=== PATIENT | male | born 1955 | race Caucasian/White ===

== ENCOUNTER 2017-10-14 13:00 | Day surgery (SDC) | payer MEDICARE ==
[~2017-10-14] VITALS: Ht 175.3 cm; Wt 90.7 kg
[~2017-10-14 13:00] MED LIST: ASPIRIN LOW DOS81 M2 PO; ATORVASTATIN CA80 MG PO; BRIMONIDINE TAR0.2 % OU; CLOPIDOGREL75 MG PO; COREG3.125 MG PO; LIPITOR20 M1 PO; LISINOPRIL10 MG PO; MAGNESIUM30 MG PO; MECLIZINE25 MG PO; MUCUS RELIEF400 MG PO; OMEPRAZOLE20 M2 PO; SERTRALINE50 MG PO; TAMSULOSIN0.4 MG PO; VENTOLIN HFA IN; VITAMIN D5000 UNIT PO; XALATAN0.005 % OU
[2017-10-14 17:48] VITALS: BP 129/75
== END 2017-10-14 18:05 | disposition home or self-care (01) ==
LOC: ENDO 13:00
PROVIDERS: ATTEND Internal Medicine Gastroenterology
PROC: 0DBP8ZX Excision of Rectum, Via Natural or Artificial Opening Endoscopic, Diagnostic (ICD-10-PCS; principal; 2017-10-14)
PROC: 0DBN8ZX Excision of Sigmoid Colon, Via Natural or Artificial Opening Endoscopic, Diagnostic (ICD-10-PCS; 2017-10-14)
DX: K57.30 Diverticulosis of large intestine without perforation or abscess without bleeding (principal); K64.4 Residual hemorrhoidal skin tags; K64.8 Other hemorrhoids; D12.5 Benign neoplasm of sigmoid colon; D12.8 Benign neoplasm of rectum; K21.9 Gastro-esophageal reflux disease without esophagitis; K44.9 Diaphragmatic hernia without obstruction or gangrene; J44.9 Chronic obstructive pulmonary disease, unspecified; Z87.11 Personal history of peptic ulcer disease; Z86.010 Personal history of colon polyps; Z79.899 Other long term (current) drug therapy

== ENCOUNTER 2019-01-12 07:38 | Day surgery (SDC) | payer MEDICARE ==
[~2019-01-12] VITALS: Ht 175.3 cm; Wt 95.3 kg
[~2019-01-12 07:38] MED LIST changes: +BENADRYL25 M1 PO; +LISINOPRIL20 MG PO; +MELATONIN5 MG PO; +VENTOLIN HFA; -VENTOLIN HFA IN
[2019-01-12 10:39] VITALS: BP 128/79
== END 2019-01-12 10:45 | disposition home or self-care (01) ==
LOC: ENDO 07:38 → ORM 13:45
PROVIDERS: ATTEND Internal Medicine Gastroenterology
PROC: 0D758ZZ Dilation of Esophagus, Via Natural or Artificial Opening Endoscopic (ICD-10-PCS; principal; 2019-01-12)
PROC: 0DB58ZX Excision of Esophagus, Via Natural or Artificial Opening Endoscopic, Diagnostic (ICD-10-PCS; 2019-01-12)
PROC: 0DB78ZX Excision of Stomach, Pylorus, Via Natural or Artificial Opening Endoscopic, Diagnostic (ICD-10-PCS; 2019-01-12)
DX: K22.8 Other specified diseases of esophagus (principal); K29.50 Unspecified chronic gastritis without bleeding; K44.9 Diaphragmatic hernia without obstruction or gangrene; K29.80 Duodenitis without bleeding; K31.9 Disease of stomach and duodenum, unspecified; K21.9 Gastro-esophageal reflux disease without esophagitis; J44.9 Chronic obstructive pulmonary disease, unspecified

== ENCOUNTER 2019-03-01 11:05 | Observation (INO) | payer MEDICARE ==
[~2019-03-01] VITALS: Ht 175.3 cm; Wt 91.0 kg
--- NOTE | 2019-03-01 11:18 | NUR ---
PT TO ROOM VIA WC
[2019-03-01 11:49] LABS: HEMATOCRIT 48.2 % (39.0-50.0); HEMOGLOBIN 16.3 g/dl (14.0-18.0); IMMATURE GRANULOCYTES 0.2 % (0.0-5.0); MEAN CELL VOLUME 85.2 fL CALC (80.0-100.0); MEAN CORPUSCULAR HGB 28.8 pG CALC (26.0-32.0); MEAN CORPUSCULAR HGB CONC 33.8 g/L CALC (32.0-36.0); NEUT# 7.62 thou/uL (1.82-7.42); RED BLOOD COUNT 5.66 mill/uL (4.70-6.10); RED CELL DISTRI WIDTH 12.8 % (11.5-15.5)
--- NOTE | 2019-03-01 12:04 | NUR ---
PT PRESENTS WITH ABD PAIN OF 10/10. ABD APPEARS DISTENDED. BOWEL SOUNDS HYPERACTIVE AND AUDIBLE WITHOUT STETH. PT HAS INTERM VOMITING BUT CONFIRMS CLEAR EMISIS AND DIARRHEA. 2 LOOSE STOOLS A DAY. SYMPTOMS STARTED 10 DAYS AGO. URINE OUTPUT IS LITTLE WITH 0.021 ML OF URINE DETERMINED BY BLADDER SCANNER. WILL CONTINUE TO MONITOR.
[2019-03-01 12:09] LABS: ALBUMIN 4.5 g/dL (3.2-5.0); ALKALINE PHOSPHATASE 93 u/l (38-126); BILIRUBIN, TOTAL 1.5 mg/dL (0.0-1.4); BUN 19 mg/dL (8-23); BUN/CREATININE RATIO 19 (12-20 (CALC)); CARBON DIOXIDE 25 mmol/l (22-30); CHLORIDE 99 mmol/l (95-108); GFR > 60 ML/MIN (>=60 (CALC)); GFR FOR AFR.AMER. > 60 ML/MIN (>=60 (CALC)); LIPASE 88 u/l (23-300); SGOT/AST 22 u/l (19-48); TOTAL PROTEIN 8.3 g/dL (6.3-8.2)
[2019-03-01 12:21] LABS: ANION GAP 16 (6-22 (CALC)); SODIUM 135 mmol/l (137-146)
[2019-03-01 12:22] LABS: POTASSIUM 5.3 mmol/l (3.5-5.1)
--- NOTE | 2019-03-01 12:57 | NUR ---
PT MADE AWARE AGAIN FOR URINE SAMPLE, PT STATES HE CANNOT PROVIDE AT THIS TIME.
--- NOTE | 2019-03-01 13:30 | NUR ---
PT PROVIDED URINE AND DENIES ANY NEEDS AT THIS TIME
[2019-03-01 14:15] LABS: URINE BLOOD DIPSTICK NEGATIVE (NEGATIVE); URINE COLOR YELLOW; URINE GLUCOSE - DIPSTICK NEGATIVE (NEGATIVE); URINE KETONE 15 mg/dL (NEGATIVE); URINE LEUK ESTERASE NEGATIVE (NEGATIVE); URINE NITRITE - DIPSTICK NEGATIVE (Negative); URINE PH 5.5 (4.5-8.0); URINE PROTEIN - DIPSTICK TRACE mg/dL (NEG-TRACE); URINE SPECIFIC GRAVITY >=1.030; URINE UROBILINOGEN - DIPSTICK 0.2 E.U./dL (0.2)
[2019-03-01 14:20] LABS: BARBITURATES NEGATIVE (NEGATIVE); COCAINE NEGATIVE (NEGATIVE); METHADONE NEGATIVE (NEGATIVE); OXCYCODONE NEGATIVE (NEGATIVE); TETRAHYDROCANNABIONOL POSITIVE (NEGATIVE); TRICYLIC ANTIDEPRESSANTS NEGATIVE (NEGATIVE)
[2019-03-01 14:22] LABS: URINE BILIRUBIN - DIPSTICK SMALL (NEGATIVE)
--- NOTE | 2019-03-01 14:28 | NUR ---
MD IN ROOM DISCUSSING PLAN OF CARE AND OPTIONS FOR ADMISSION
--- NOTE | 2019-03-01 15:50 | NUR ---
PT SITTING UP IN BED TALKING TO DENIES ANY NEEDS
--- NOTE | 2019-03-01 16:50 | NUR ---
PT ASKED ABOUT REDNESS ON FACE, MD NOTIFIED NOTE: REDNESS WAS SEEN UPON ARRIVAL BUT AGGRIVATED WITH VOMITING
--- NOTE | 2019-03-01 17:19 | NUR ---
PT RESTING WITH EYES CLOSED
--- NOTE | 2019-03-01 17:26 | NUR ---
FUTURE NOTES AND VITALS DONE ON STATUS BOARD
[2019-03-01 18:00] VITALS: BP 137/64
--- NOTE | 2019-03-01 18:00 | NUR ---
PT RESTING WITH EYES CLOSED
--- NOTE | 2019-03-01 18:00 | NUR ---
PT RESTING ON STRETCHER WITH EYES CLOSED
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
--- NOTE | 2019-03-01 19:46 | NUR ---
CALLED MED SURG BUT NURSE BUSY. NURSE IS SAID TO CALL BACK
--- NOTE | 2019-03-01 20:04 | NUR ---
PT ONLY ATE ABOUT 10% OF FOOD FROM TRAY. PT STATED HE COULD NOT EAT MORE. PT DENIES ANY OTHER NEEDS
--- NOTE | 2019-03-01 20:08 | NUR ---
CALLED MED [facility]G FOR REPORT WAS PUT ON HOLD FOR 15 MINS. CALLED AGAIN...NO RESPONSE
--- NOTE | 2019-03-01 20:09 | NUR ---
SOMEONE ANSWERED PHONE AND STATED THAT THE NURSE SHERLYN WILL CALL BACK
--- NOTE | 2019-03-01 20:13 | NUR ---
REPORT JASPER TO SHERLYN
--- NOTE | 2019-03-01 20:33 | NUR ---
PT TRANSFERED TO [facility] STABLE AND IN NO DISTRESS CARE ASSUMED TO SHERLYN
[2019-03-01 21:20] VITALS: BP 96/55
--- NOTE | 2019-03-01 22:50 | NUR ---
PT RECEIVED PRN DOSE OF TYLENOL FOR PAIN IN THE ABDOMEN, TOLERATED WELL. WILL CONT TO MONITOR.
[2019-03-02 04:05] VITALS: BP 98/60
--- NOTE | 2019-03-02 05:54 | NUR ---
PT HAS HAD NO EPISODES OF VOMITING AND NO C/O NAUSEA DURING SHIFT. ABD IS SOFT AND DISTENDED, NO C/O ON PALPATION. BOWEL SOUNDS ACTIVE. PT WT IS 91.4KG. PT STATES PAIN IS 0/10 ON PAIN SCALE. PT RESTING IN BED WITH EYES CLOSED. 20G IN RIGHT AC PATENT AND INTACT.
--- NOTE | 2019-03-02 07:15 | NUR ---
REPORT RECEIVED FROM DEBI PLATA;PT APPEARS TO BE SLEEPING IN SEMI FOWLERS POSITION;NO S/S OF DISTRESS NOTED;RESPIRATIONS EVEN AND UNLABORED ON RA;ALL SAFETY PRECAUTIONS IN PLACE WITH BED IN THE LOWEST POSITION AND CALL LIGHT IN REACH;WILL CONTINUE TO MONITOR
[2019-03-02 08:01] LABS: ANION GAP 15 (6-22 (CALC)); BUN 17 mg/dL (8-23); BUN/CREATININE RATIO 21 (12-20 (CALC)); CARBON DIOXIDE 21 mmol/l (22-30); CHLORIDE 104 mmol/l (95-108); CREATININE 0.8 mg/dL (0.7-1.3); GFR > 60 ML/MIN (>=60 (CALC)); GFR FOR AFR.AMER. > 60 ML/MIN (>=60 (CALC)); POTASSIUM 4.5 mmol/l (3.5-5.1); SODIUM 135 mmol/l (137-146)
--- NOTE | 2019-03-02 08:40 | NUR ---
PT RESTING IN SEMI FOWLERS POSITION,A&O X4;VS OBTAINED AND ASSESSMENT COMPLETED;PT DENIES ANY CURRENT PAIN OR DISCOMFORTS,PAIN SCALE AND REPORTING EDUCATED;RESPIRATIONS EVEN AND UNLABORED ON RA;ABDOMEN DISTENDED/SOFT ON PALPATION AND ACTIVE IN ALL 4 QUADRANTS;WEAK PEDAL PULSES;SKIN INTACT;#20G TO RAC FLUSHED AND PATENT,NS STARTED @ 100ML/HR,SITE APPEARS HEALTHY;PT DENIES ANY ADDITIONAL NEEDS AT THIS TIME AND IS ENCOURAGED TO CALL FOR ASSISTANCE IF NEEDED;FALL PRECAUTIONS IN PLACE WITH CALL LIGHT IN REACH;WILL CONTINUE TO MONITOR
[2019-03-02 08:41] VITALS: BP 100/67
[2019-03-02] MEDS ORDERED: LISINOPRIL40 MG PO (11:53)
[2019-03-02] MEDS ORDERED: LIPITOR40 M1 PO (11:55)
--- NOTE | 2019-03-02 12:20 | NUR ---
PT RESTING IN SEMI FOWLERS POSITION WITH SPOUSE AT BEDSIDE;RESPIRATIONS EVEN AND UNLABORED ON RA;PT DENIES ANY CURRENT PAIN OR NEEDS;IV FLUIDS INFUSING WITH EASE PER ORDER;NPO DIET REINFORCED AND PT VERBALIZES UNDERSTANDING;PT ENCOURAGED TO CALL FOR ASSISTANCE IF NEEDED;CALL LIGHT IN REACH;WILL CONTINUE TO MONITOR
[2019-03-02] MEDS ORDERED: LIPITOR80 M1 PO (12:33)
--- NOTE | 2019-03-02 12:36 | NUR ---
PT TRANSPORTED TO [facility] IN STABLE CONDITION VIA WHEELCHAIR ACCOMPANIED BY VOLUNTEER.
--- NOTE | 2019-03-02 13:03 | NUR ---
PT TRANSPORTED BACK TO MED/SURG ROOM 267 IN STABLE CONDITION VIA WHEELCHAIR ACCOMPANIED BY VOLUNTEER.
--- NOTE | 2019-03-02 13:11 | NUR ---
AT BEDSIDE DISCUSSING POC WITH PT AND SPOUSE.
--- NOTE | 2019-03-02 13:43 | NUR ---
AT BEDSIDE DISCUSSING POC WITH PT AND SPOUSE.
[2019-03-02 15:07] VITALS: BP 121/76
--- NOTE | 2019-03-02 15:30 | NUR ---
PT RESTING IN SEMI FOWLERS POSITION WITH SPOUSE AT BEDSIDE;RESPIRATIONS EVEN AND UNLABORED ON RA;PT DENIES ANY CURRENT PAIN OR NEEDS;IV FLUIDS INFUSING WITH EASE;ASSESSMENT REMAINS UNCHANGED;PT ENCOURAGED TO CALL FOR ASSISTANCE IF NEEDED;CALL LIGHT IN REACH;WILL CONTINUE TO MONITOR
[2019-03-02 20:00] VITALS: BP 118/68
--- NOTE | 2019-03-02 20:05 | NUR ---
ASSESSMENT COMPLETED. IV SITE PATENT AND INFUSING ORDERED IVF WELL. UPDATED ON POC AND INSTRUCTED ON NEED FOR STOOL SAMPLE. DENIES NAUSEA/VOMITING. ENCOURAGED TO CALL FOR ANY NEEDS. CALL LIGHT IS IN REACH.
--- NOTE | 2019-03-03 00:10 | NUR ---
RESTING IN BED ON LEFT SIDE WITH EYES CLOSED; RESP. EVEN AND UNLABORED.
--- NOTE | 2019-03-03 03:45 | NUR ---
RESTING IN BED WITH EYES CLOSED; RESP. EVEN AND UNLABORED. CALL LIGHT IS IN REACH.
[2019-03-03 04:00] VITALS: BP 114/69
[2019-03-03 05:12] LABS: IMMATURE GRANULOCYTES 0.2 % (0.0-5.0); MEAN CELL VOLUME 86.1 fL CALC (80.0-100.0); MEAN CORPUSCULAR HGB 28.8 pG CALC (26.0-32.0); MEAN CORPUSCULAR HGB CONC 33.4 g/L CALC (32.0-36.0); NEUT# 3.23 thou/uL (1.82-7.42); RED BLOOD COUNT 4.62 mill/uL (4.70-6.10); RED CELL DISTRI WIDTH 12.5 % (11.5-15.5)
[2019-03-03 05:24] LABS: HEMATOCRIT 39.8 % (39.0-50.0); HEMOGLOBIN 13.3 g/dl (14.0-18.0)
[2019-03-03 05:31] LABS: ANION GAP 11 (6-22 (CALC)); BUN 13 mg/dL (8-23); BUN/CREATININE RATIO 18 (12-20 (CALC)); CARBON DIOXIDE 22 mmol/l (22-30); CHLORIDE 106 mmol/l (95-108); CREATININE 0.7 mg/dL (0.7-1.3); GFR > 60 ML/MIN (>=60 (CALC)); GFR FOR AFR.AMER. > 60 ML/MIN (>=60 (CALC)); MAGNESIUM 1.8 mg/dL (1.6-2.3); POTASSIUM 4.3 mmol/l (3.5-5.1); SODIUM 135 mmol/l (137-146)
--- NOTE | 2019-03-03 06:00 | NUR ---
RESTING IN BED WITH NO DISTRESS NOTED; DENIES NEEDS/PAIN. CALL LIGHT IS IN REACH.
[2019-03-03 07:18] VITALS: BP 117/72
--- NOTE | 2019-03-03 07:18 | NUR ---
PT RESTING IN BED, NO SIGNS OF DISTRESS NOTED, RESP EVEN AND UNLABORED. PT ALERT AND ORIENTED X3, DISCUSSED POC, PT DENIES ANY NEEDS OR PAIN AT THIS TIME. ASSESSMENT COMPLETED, CALL LIGHT IN REACH,CONTINUE TO MONITOR.
--- NOTE | 2019-03-03 08:18 | NUR ---
ASSISTED PT TO BATHROOM IN ATTEMPTS TO HAVE A BM, INFORMED PT THAT STOOL SAMPLE NEEDED. HAT IN TOILET. INSTRUCTED TO PULL CORD WHEN DONE.
[2019-03-03 08:57] VITALS: BP 117/72
--- NOTE | 2019-03-03 12:00 | NUR ---
PT RESTING IN BED, DISCUSSED ADVANCED DIET, PT VOICES NO NEEDS OR COMPLAINTS AT THIS TIME. CALL LIGHT IN REACH,CONTINUE TO MONITOR.
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
--- NOTE | 2019-03-03 13:18 | NUR ---
Discharge instructions given. Patient verbalizes understanding of same. Discharged in stable condition via Wheelchair to Home with spouse. All belongings sent with pt.
== END 2019-03-03 13:16 | disposition home or self-care (01) ==
LOC: ED 11:05 → ED-I 14:27 → ED 14:40 → MS2 14:41 → ED-I 14:41 → MS2 18:47
PROVIDERS: Nurse Practitioner Family; ADMIT Internal Medicine; ATTEND Internal Medicine
DX: A08.4 Viral intestinal infection, unspecified (principal); E86.0 Dehydration; I95.9 Hypotension, unspecified; E87.5 Hyperkalemia; R74.0 Nonspecific elevation of levels of transaminase and lactic acid dehydrogenase [LDH]; I10 Essential (primary) hypertension; E78.5 Hyperlipidemia, unspecified; J43.9 Emphysema, unspecified; I25.10 Atherosclerotic heart disease of native coronary artery without angina pectoris; K21.9 Gastro-esophageal reflux disease without esophagitis; K44.9 Diaphragmatic hernia without obstruction or gangrene; N40.0 Benign prostatic hyperplasia without lower urinary tract symptoms; F17.200 Nicotine dependence, unspecified, uncomplicated; Z95.5 Presence of coronary angioplasty implant and graft; Z79.02 Long term (current) use of antithrombotics/antiplatelets; Z95.828 Presence of other vascular implants and grafts
CPT/HCPCS: G0378; J1650; Q9967; S0164

== ENCOUNTER 2019-10-05 12:32 | Inpatient (IN) | payer MEDICARE ==
[~2019-10-05] VITALS: Ht 175.3 cm; Wt 93.9 kg
[~2019-10-05 12:32] MED LIST changes: +LIPITOR40 M1 PO; +LIPITOR80 M1 PO; +LISINOPRIL40 MG PO
--- NOTE | 2019-10-05 12:40 | NUR ---
PT ARRIVED VIA WC WITH STAFF.
[2019-10-05 12:54] VITALS: BP 154/75
--- NOTE | 2019-10-05 13:15 | NUR ---
LABS DRAWN, COVID SWAB COMPLETED;
--- NOTE | 2019-10-05 13:20 | NUR ---
ASSESSMENT IS COMPLETED: NEW IV SITE OBTAINED IN RFA WITH #20, HR IS REG,PULSES ARE STRONG X4, ABD IS SOFT WITH ACTIVE BS. BREATH SOUNDS ARE CLEAR,BILATERALLY., O2 @ 2LITERS WITH NC. TELE MONITOR IN PLACE.
[2019-10-05 13:28] LABS: HEMATOCRIT 42.9 % (39.0-50.0); HEMOGLOBIN 14.2 g/dl (14.0-18.0); IMMATURE GRANULOCYTES 0.3 % (0.0-5.0); MEAN CELL VOLUME 83.5 fL CALC (80.0-100.0); MEAN CORPUSCULAR HGB 27.6 pG CALC (26.0-32.0); MEAN CORPUSCULAR HGB CONC 33.1 g/dL CAL (32.0-36.0); NEUT# 2.42 thou/uL (1.82-7.42); RED BLOOD COUNT 5.14 mill/uL (4.70-6.10); RED CELL DISTRI WIDTH 13.3 % (11.5-15.5)
[2019-10-05 14:34] LABS: ALBUMIN 3.9 g/dL (3.2-5.0); ALKALINE PHOSPHATASE 106 u/l (38-126); ANION GAP 13 (6-22 (CALC)); BUN 18 mg/dL (8-23); BUN/CREATININE RATIO 20 (12-20 (CALC)); CARBON DIOXIDE 24 mmol/l (22-30); CHLORIDE 96 mmol/l (95-108); CREATININE 0.9 mg/dL (0.7-1.3); GFR > 60 ML/MIN (>=60 (CALC)); GFR FOR AFR.AMER. > 60 ML/MIN (>=60 (CALC)); POTASSIUM 3.7 mmol/l (3.5-5.1); SODIUM 129 mmol/l (137-146); TOTAL PROTEIN 6.9 g/dL (6.3-8.2)
[2019-10-05 15:08] LABS: BILIRUBIN, TOTAL 2.7 mg/dL (0.0-1.4); C-REACTIVE PROTEIN 18.2 mg/dL (0-0.9); SGOT/AST 45 u/l (19-48)
[2019-10-05 15:12] VITALS: BP 129/57
--- NOTE | 2019-10-05 17:15 | NUR ---
PT IS RELAXING IN BED WITH NO DISTRESS NOTED.
[2019-10-05 19:20] VITALS: BP 122/59
--- NOTE | 2019-10-05 20:30 | NUR ---
PHYSICAL ASSESMENT COMPLETE. PT RESTING IN BED. REPORTS THROBBING HEADACHE 08/16. PRN TYLENOL ADMINISTERED FOR C/O HEADACHE, PRN ATIVAN ADMINISTERED FOR SLEEP PER PTS REQUEST. SCHEDULED MEDICATION ADMINISTERED. SEE E-MAR. PLAN OF CARE REVIEWED, PT VERBALIZES UNDERSTANDING AND DENIES QUESTIONS. PT DENIES FURTHER NEEDS AT THIS TIME. CALL REVELES WITHIN REACH, AGREES TO CALL PRN.
[2019-10-05 22:39] LABS: URINE BILIRUBIN - DIPSTICK NEGATIVE (NEGATIVE); URINE BLOOD DIPSTICK NEGATIVE (NEGATIVE); URINE CLARITY CLEAR; URINE COLOR YELLOW; URINE GLUCOSE - DIPSTICK NEGATIVE (NEGATIVE); URINE KETONE 15 mg/dL (NEGATIVE); URINE LEUK ESTERASE NEGATIVE (Negative); URINE NITRITE - DIPSTICK NEGATIVE (Negative); URINE PROTEIN - DIPSTICK NEGATIVE (NEG-TRACE); URINE UROBILINOGEN - DIPSTICK 0.2 E.U./dL (0.2)
[2019-10-06 00:05] VITALS: BP 133/71
--- NOTE | 2019-10-06 00:46 | NUR ---
PT SLEEPING, APPEARS COMFORTABLE AND IN NO DISTRESS, RESPIRATIONS REGULAR AND UNLABORED, CALL REVELES REMAON WITHIN REACH.
--- NOTE | 2019-10-06 04:07 | NUR ---
IV SITE INSERTED TO R AC, 20 G, X1 ATTEMPT FOR IV CONTRAST WITH AM CTA. PT REPORTS HEADACHE, 08/16, PRN TYLENOL ADMINISTERED. SEE E-MAR. DENIES FURTHER NEEDS, CALL REVELES WITHIN REACH, AGREES TO CALL PRN.
[2019-10-06 04:36] VITALS: BP 134/75
[2019-10-06 05:07] LABS: ALBUMIN 3.4 g/dL (3.2-5.0); ALKALINE PHOSPHATASE 97 u/l (38-126); ANION GAP 10 (6-22 (CALC)); BILIRUBIN, TOTAL 2.2 mg/dL (0.0-1.4); BUN 15 mg/dL (8-23); BUN/CREATININE RATIO 19 (12-20 (CALC)); CARBON DIOXIDE 26 mmol/l (22-30); CHLORIDE 98 mmol/l (95-108); CREATININE 0.8 mg/dL (0.7-1.3); GFR > 60 ML/MIN (>=60 (CALC)); GFR FOR AFR.AMER. > 60 ML/MIN (>=60 (CALC)); POTASSIUM 3.8 mmol/l (3.5-5.1); SGOT/AST 46 u/l (19-48); SODIUM 129 mmol/l (137-146); TOTAL PROTEIN 6.2 g/dL (6.3-8.2)
--- NOTE | 2019-10-06 05:21 | NUR ---
SPOKE WITH ORIENTATION & MOBILITY SPECIALIST REGARDING WHEN PT COULD BE BROUGHT TO RADIOLOGY FOR CTA. STATES HE WILL CALL WHEN PT CAN BE BROUGHT DOWN.
--- NOTE | 2019-10-06 05:58 | NUR ---
LABORER PIE BAKERY CALLS AND REPORTS HE IS READY FOR PT TO BE BROUGHT DOWN TO CT.
--- NOTE | 2019-10-06 06:05 | NUR ---
PT DOWN TO CT VIA WC, ACCOMPANIED BY Nicola GONZALEZ CNA
--- NOTE | 2019-10-06 06:24 | NUR ---
PT BACK FROM CT, RETURNS TO ROOM.
[2019-10-06] MEDS ORDERED: LISINOPRIL20 MG PO (07:28)
[2019-10-06] MEDS ORDERED: PANTOPRAZOLE SO40 M1 PO (07:31)
[2019-10-06] MEDS ORDERED: CARAFATE1 GM PO (07:32)
[2019-10-06] MEDS ORDERED: ATORVASTATIN CA80 MG PO (07:32)
[2019-10-06 08:10] VITALS: BP 118/60
--- NOTE | 2019-10-06 08:10 | NUR ---
ASSESSMENT IS COMPLETED: IV SITE IS FREE FROM REDNESS OR EDEMA. HR IS REG, PULSES ARE STRONG X4, ABD IS SOFT WITH ACTIVE BS. BREATH SOUNDS ARE CLEAR BILATERALLY. PT HAS O2 IN THE ROOM DID NOT HAVE IT ON AT THIS TIME. TELE MONITOR IN PLACE. CONTINUE TO OSBERVE AND MONITOR.
[2019-10-06 11:37] VITALS: BP 122/71
--- NOTE | 2019-10-06 12:15 | NUR ---
PT IS RELAXING IN BED WITH NO DISTRESS NOTED. IV SITE IS FREE FROM REDNESS OR EDEMA.
--- NOTE | 2019-10-06 14:53 | NUR ---
pt c/o "coughing on water, and loose stools started on tuesday".
--- NOTE | 2019-10-06 16:00 | NUR ---
PTIS RELAXING IN BED WITH NO DISTRESS NOTED. IV SITE IS FREE FROM REDNESS OR EDEMA.
[2019-10-06 16:28] VITALS: BP 112/72
--- NOTE | 2019-10-06 17:07 | NUR ---
SPOKE WITH PT " INQUIRED ABOUT WHAT WE ARE DOING WITH HER ." " HE HAS AN ILEUS IN HIS STOMACH AND ONLY WAY IT CAN HELPIS IV FLUIDS". HE WENT TO [facility] AND THAT IS WHAT THEY FOUND. EXPLAINED WILL CALL THE DR AND INFORM THEM OF WHAT WAS TOLD.
--- NOTE | 2019-10-06 18:52 | NUR ---
SPOKE WITH PT RE: NEW ORDER FOR IV FLUIDS. PT C/O "THE DR SAID HE WAS COMING BACK TO SEE ME DIDN'T, ALSO I TOLD THE DR THAT SENT ME HERE ABOUT THIS " PT ALSO STATED" LAST TIME THIS HAPPENED I WENT TO [place] AND THEY SCOPED ME AND SENT ME HOME THE NEXT DAY" COMMENTED TO SAY " THIS HOSPITAL TREATED ME [facility] THIS LAST TIME AND THEN I WENT TO [place]". ACKNOWLEDGED THAT PT WANTS SLEEPING MEDICATION NOW INSTEAD OF AT 2100. EXPLAINED IT WAS TOO EARLY. "WELL THEN THEY HAVE TO WAKE ME UP TO GIVE IT TO ME". CONTINEU TO OSBERVE AND MONITOR.
--- NOTE | 2019-10-06 19:00 | NUR ---
REPORT RECEIVED FROM Lucero AGRAWAL LPN, CARE OF PT ASSUMED AT THIS TIME.
[2019-10-06 20:02] VITALS: BP 127/73
--- NOTE | 2019-10-06 20:30 | NUR ---
PHYSICAL ASSESMENT COMPLETE. PT LAYING IN BED. RESPIRATIONS REGULAR AND UNLABORED. NO APPARENT DISTRESS. SEE E-MAR FOR ADMINISTRATION OF SCHEDULED AND PRN MEDICATION(S). PLAN OF CARE REVIEWED, PT VERBALIZES UNDERSTANDING AND DENIES QUESTIONS. PT IS ABLE TO MAKE NEEDS KNOWN, DENIES NEEDS AT THIS TIME. CALL REVELES WITHIN REACH, AGREES TO CALL PRN.
[2019-10-07 00:29] VITALS: BP 108/66
--- NOTE | 2019-10-07 00:40 | NUR ---
PT LAYING IN BED, APPEARS TO BE SLEEPING COMFORTABLY, NO APPARENT DISTRESS, RESPIRATIONS REGULAR AND UNLABORED. CALL REVELES REMAINS WITHIN REACH.
[2019-10-07 04:49] VITALS: BP 103/69
[2019-10-07 05:57] LABS: HEMATOCRIT 37.8 % (39.0-50.0); HEMOGLOBIN 12.6 g/dl (14.0-18.0); MEAN CELL VOLUME 83.6 fL CALC (80.0-100.0); MEAN CORPUSCULAR HGB 27.9 pG CALC (26.0-32.0); MEAN CORPUSCULAR HGB CONC 33.3 g/dL CAL (32.0-36.0); NEUT# 0.97 thou/uL (1.82-7.42); RED BLOOD COUNT 4.52 mill/uL (4.70-6.10); RED CELL DISTRI WIDTH 13.2 % (11.5-15.5)
[2019-10-07 06:19] LABS: PROTHROMBIN TIME 10.3 SECONDS (9.0-12.5)
[2019-10-07 06:24] LABS: ALBUMIN 3.4 g/dL (3.2-5.0); ALKALINE PHOSPHATASE 102 u/l (38-126); ANION GAP 12 (6-22 (CALC)); BILIRUBIN, TOTAL 1.5 mg/dL (0.0-1.4); BUN 12 mg/dL (8-23); BUN/CREATININE RATIO 16 (12-20 (CALC)); C-REACTIVE PROTEIN 8.1 mg/dL (0-0.9); CARBON DIOXIDE 23 mmol/l (22-30); CHLORIDE 100 mmol/l (95-108); CREATININE 0.7 mg/dL (0.7-1.3); GFR > 60 ML/MIN (>=60 (CALC)); GFR FOR AFR.AMER. > 60 ML/MIN (>=60 (CALC)); POTASSIUM 3.8 mmol/l (3.5-5.1); SGOT/AST 47 u/l (19-48); SODIUM 131 mmol/l (137-146); TOTAL PROTEIN 6.1 g/dL (6.3-8.2)
[2019-10-07 08:00] VITALS: BP 105/53
--- NOTE | 2019-10-07 08:00 | NUR ---
ASSESSMENT IS COMPLETD: IV SITES ARE FREE FROM REDNESS OR EDEMA. HR IS REG,PULSES ARE STRONG X4, ABD IS SOFT WITH ACTIVE BS. BREATH SOUNDS ARE CLEAR,BILATERALLY. NO C/O SOB. EXPLAINED TO PT RE:WAITING FOR US TECH AND WILL LET HIM KNOW. PT VERBALIZED UNDERSTANDING.,
--- NOTE | 2019-10-07 08:30 | NUR ---
PT CALLED AND TOLD THE BARREL ENDSHAKE ADJUSTER AND STAFF. " I AM READY TO GO HOME, MY ALREADY SET ME UP WITH AN APPOINTMENT IN [place]". INFORMED THAT DR DUMONT WAS HERE, WILL WAIT AND SEE HIM,
--- NOTE | 2019-10-07 10:00 | NUR ---
PT DID AGREE FOR THE US , THEN DR DUMONT CAME IN AND PT SAID "FORGET IT, IA M GOING HOME" EXPLAINED TO DR DUMONT THAT " HE IS GOING TO [place] WHERE HIS OTHER DR KNOWS WHAT TO DO AND TAKE CARE OF MY ISSUES" WHEN ASKED ABOUT THE ISSUES, STATED" I HAVE DIARRHEA AND NOT EATTEN IN 3 TO 4 DAYS. " INFORMED OF THE REASOM FOR THE ADMISSION. PT WANTS TO LEAVE.
--- NOTE | 2019-10-07 10:30 | NUR ---
DR DUMONT INFORMED PT OF DISCHARGE AND INSTRUCTED HIM TO SEE HIS PRIMARY CAER PHYSICIAN.
[2019-10-07 11:45] VITALS: BP 103/69
--- NOTE | 2019-10-07 12:15 | NUR ---
PT RECEIVED DISCHARGE INSTRUCTIONS AND VERBALIZED UNDERSTANDING. FAMILY IS WAITING IN THE PARKING LOT. IV SITE DISCONTINUED CATHETER INTACT. NO REDNESS OR EDEMA. Discharge instructions given. Patient verbalizes understanding of same. Discharged in stable condition via Wheelchair to Home with family. All belongings sent with pt. PT LEFT WITHOUT ANY O2 IN PLACE. NO WANTING OR NEEDING PER PT.
== END 2019-10-07 12:15 | disposition home or self-care (01) | DRG 192 ==
LOC: MS2 12:32
PROVIDERS: Internal Medicine; Nurse Practitioner Family; ADMIT Internal Medicine; ATTEND Internal Medicine
DX: J43.9 Emphysema, unspecified (principal); I10 Essential (primary) hypertension; I25.10 Atherosclerotic heart disease of native coronary artery without angina pectoris; K21.9 Gastro-esophageal reflux disease without esophagitis; K29.70 Gastritis, unspecified, without bleeding; I99.9 Unspecified disorder of circulatory system; Z95.5 Presence of coronary angioplasty implant and graft; Z95.820 Peripheral vascular angioplasty status with implants and grafts; Z20.828 Contact with and (suspected) exposure to other viral communicable diseases; Z87.891 Personal history of nicotine dependence
CPT/HCPCS: J1650; Q9967